=== PATIENT | male | born 1955 | race Caucasian/White ===

== ENCOUNTER 2017-10-12 13:39 | Day surgery (SDC) | END 2017-10-12 17:04 | disposition home or self-care (01) ==

== ENCOUNTER 2019-03-26 11:22 | Day surgery (SDC) | payer OTHER ==
[~2019-03-26] VITALS: Ht 180.3 cm; Wt 92.4 kg
[~2019-03-26 11:22] MED LIST: IBUP100T3 PO; LABE100T7 PO; LOSA25TA12 PO
[2019-03-26] MEDS ORDERED: CARDURA (12:09)
[2019-03-26] MEDS ORDERED: AMLODIPINE (12:09)
[2019-03-26 12:11] VITALS: Ht 180.3 cm; Wt 92.4 kg
[2019-03-26 12:18] VITALS: BP 122/62; PULSE 80; RESP 16
--- NOTE | 2019-03-26 13:12 | PREAC ---
Date/Time of Note Date/Time of Note DATE: 03/26/19 TIME: 13:10 Anesthesia Eval and Record Evaluation Time Pre-Procedure Interview DATE: 03/26/19 TIME: 13:10 Age 64 Sex male NPO: 8 hrs Preoperative diagnosis Anemia Planned procedure EGD Past Medical History Past Medical History: Includes Cardio: HTN Pulm: Smoking Hx Musculoskeletal: Osteoarthritis Infection(s): Hep C (treated) Surgery & Anesthesia Issues No known issue Meds Anticoagulation: No Beta Jessika within 24 hr: No Reason Beta Jessika not given: Pt. not on B-Jessika Reported Medications [Cardura] No Conflict Check 03/26/19 [Amlodipine] No Conflict Check 03/26/19 Ibuprofen* (Ibuprofen*) 100 Mg Tab.chew, 200 MG PO Q6 PRN for PAIN, TAB.CHEW 10/12/17 Losartan Potassium* (Losartan Potassium*) 25 Mg Tablet, 25 MG PO DAILY, TAB 10/12/17 Discontinued Reported Medications Labetalol Hcl* (Labetalol Hcl*) 100 Mg Tablet, 100 MG PO BID, TAB 10/12/17 Meds reviewed: Yes Allergies Coded Allergies: Penicillins (Verified Allergy, Unknown, 10/12/17) Allergies Reviewed: Yes Labs/Studies Labs Reviewed: Reviewed by anesthesiologist test: N/A Studies: ECG (n/a), CXR (n/a) Pre-procedure Exam Last vitals Vital Signs Date Temp Pulse Resp B/P (MAP) Pulse Ox O2 O2 Flow FiO2 Time Delivery Rate 03/26/19 97.6 80 16 122/62 98 Room Air 12:18 (82) Airway: Adequate mouth opening, Adequate thyromental dist Mallampati: Mallampati II Teeth: Normal Lung: Normal Heart: Normal ASA Physical Status ASA physical status: 3 Emergency: None Planned Anesthetic General/MAC: MAC Planned Pain Management Parenteral pain med Pre-operative Attestations Prior to commencing anesthesia and surgery, the patient was re-evaluated, there was verification of: *The patient's identity *The results of appropriate recent lab work and preoperative vital signs *The above evaluation not changing prior to induction *Anesthetic plan, risk benefits, alternative and complications discussed with patient/family; questions answered; patient/family understands, accepts and wishes to proceed. DUNIA SALEEM MD Mar 26, 2019 13:12
[2019-03-26 13:55] VITALS: BP 119/58; RESP 15
--- NOTE | 2019-03-26 14:19 | PAC ---
Date/Time of Note Date/Time of Note DATE: 03/26/19 TIME: 14:19 Post-Anesthesia Notes Post-Anesthesia Note Last documented vital signs Vital Signs Date Temp Pulse Resp B/P (MAP) Pulse Ox O2 O2 Flow FiO2 Time Delivery Rate 03/26/19 97.6 80 16 122/62 98 Room Air 13:18 (82) Activity: WNL Respiratory function: WNL Cardiovascular function: WNL Mental status: Baseline Pain reasonably controlled: Yes Hydration appropriate: Yes Nausea/Vomiting absent: Yes DUNIA SALEEM MD Mar 26, 2019 14:19
== END 2019-03-26 16:30 | disposition home or self-care (01) ==
LOC: GIL 11:22
PROVIDERS: ATTEND Internal Medicine Gastroenterology
DX: K29.50 Unspecified chronic gastritis without bleeding (principal); I10 Essential (primary) hypertension
CPT/HCPCS: 43239; 88305; 88312; Z7610